=== PATIENT | male | born 1965 | race Caucasian/White ===

== ENCOUNTER → 2024-01-29 09:12 | Outpatient (REF) | payer BC, SELFPAY | LOC: RCS 09:12 | PROVIDERS: ATTENDING PHYSICIAN Internal Medicine Cardiovascular Disease; FAMILY PHYSICIAN Family Medicine | DX: R06.02 Shortness of breath (principal) | CPT/HCPCS: 93017; 93350 ==

== ENCOUNTER 2024-06-06 18:24 | Emergency (ER) | payer BC, SELFPAY ==
[2024-06-06 18:32] VITALS: BP 141/87
[2024-06-06 19:15] VITALS: BP 122/78
[2024-06-06 19:38] LABS: % Basophils 1.5 % (0-2); % Eosinophils 2.6 % (0-6); % Immature Granulocytes 0.3 % (0-0.5); % Lymphocytes 25.8 % (20.5-51.1); % Monocytes 9.1 % (1.7-9.3); % Neutrophils 60.7 % (42.2-75.2); Absolute Basophils 0.1 10^3/uL (0-0.2); Absolute Eosinophils 0.2 10^3/uL (0-0.7); Absolute Lymphocytes 1.8 10^3/uL (1.2-3.4); Absolute Monocytes 0.6 10^3/uL (0.1-0.6); Absolute Neutrophils 4.1 10^3/uL (1.4-6.5); Hematocrit 40.4 % (39.0-52.0); Hemoglobin 14.1 g/dL (13.0-18.0); Mean Corp Hgb Conc. 34.9 g/dL (33.0-37.0); Mean Corpuscular Hgb 29.3 pg (27.0-31.0); Mean Corpuscular Volume 83.8 fL (80.0-94.0); Mean Platelet Volume 10.3 fL (7.4-10.4); Nucleated Red Blood Cells % 0 % (-); Platelet Count 218 10^3/uL (130-400); Red Blood Cell Count 4.82 10^6/uL (4.70-6.10); Red Cell Dist. Width 12.5 % (11.5-14.5); White Blood Cell Count 6.8 10^3/uL (4.8-10.8)
[2024-06-06 19:52] LABS: ALT (SGPT) 23 U/L (0-50); AST (SGOT) 25 U/L (17-59); Albumin 4.3 g/dl (3.5-5.0); Alkaline Phosphatase 73 U/L (38-126); Blood Urea Nitrogen 25 mg/dl (9-20); Calcium 9.3 mg/dl (8.4-10.2); Carbon Dioxide 26 mmol/L (22-30); Chloride 103 mmol/L (98-107); Glucose 120 mg/dl (70-99); Potassium 3.9 mmol/L (3.5-5.1); Sodium 140 mmol/L (135-145); Total Bilirubin 0.2 mg/dl (0.2-1.3); Total Protein 6.7 g/dl (6.3-8.2); eGFR > 60.00
[2024-06-06 20:06] VITALS: BP 132/85
[2024-06-06 20:11] LABS: Troponin I < 0.012 ng/ml
[2024-06-06] MEDS: TORADOL 30 MG IM (20:55)
--- NOTE | 2024-06-06 20:59 | ED.GENMED ---
History of Present Illness
General
Chief Complaint: Chest Pain
Source: patient and spouse
Exam Limitations: none
Time Seen by Provider: 06/06/24 19:10
Nursing documentation reviewed up to this point in time: agreed with
History of Present Illness
History of Present Illness:
58-year-old male past medical history of hyperlipidemia presenting to the emergency department today with concerns of a lower chest discomfort especially with movement and positioning intermittently over the past 2 weeks no symptoms currently while
at rest and not moving. No associate breath nausea vomiting or diaphoresis. Had a recent stress echo this year that did not show any abnormalities.
Past History
Past History
ED Past Medical History: Asthma and Cancer (melanoma)
ED Past Surgical History: Orthopedic and Other (melanoma surgery, inguinal hernia); Negative Appendectomy, Bowel resection or Brain
Social History
Tobacco: Non-smoker
Alcohol: None
Drug: None
Personal:
Living: with family
Employment: Employed (Self-employed, restaurant owner operator tanker truck driver)
Family History
Family History: Diabetes (Mother), Hypertension, CAD (Mother with coronary artery disease late onset) and Cancer (Father at age 89 of leukemia)
Review of Systems
Review of Systems
Allergies reviewed?: Yes
All Other Systems: ROS reviewed and negative except as documented in HPI and ROS
Phy Exam
Physical Exam
Physical Exam:
GENERAL: Alert , in no apparent distress
EYE: pupils equal and reactive
NECK: Supple, no significant adenopathy.
ENT: o/p clr, mmm.
CARDIAC: Regular rate and rhythm .
LUNGS: Clear breath sounds bilaterally, no acute respiratory distress, no wheezes/rales/rhonchi
ABDOMEN: Soft, without focal tenderness, no r/g, no cvat
NEUROLOGICAL: Alert and oriented, no focal neuro deficits
SKIN: Warm and dry, skin intact.
MUSCULOSKELETAL: No edema, well perfused.
PSYCH: Normal and appropriate interaction.
Scores
Heart Score for Chest Pain Patients
STEMI patient?: No
History: Slightly or Non-Suspicious
ECG: Normal
Age: >45 - <65 years
Risk Factors: 1 or 2 Risk Factors
Troponin: </= Normal Limit
Heart Score for Chest Pain Patients: 2
Heart Score Risk: 2.5% MACE over next 6 weeks
Course
Orders/Labs/Results
Orders:
Orders
06/06/24 18:25
Electrocardiogram (*1) Urgent
Reason for Study: Chest Pain
EKG- Treatment ONCE
06/06/24 19:19
Cardiac Monitoring- Treatment ONCE
IV Insert/Care/Rem.- Treatment PRN
06/06/24 19:29
Complete Blood Count/With Diff Urgent
Comprehensive Metabolic Panel Urgent
Troponin I Urgent
06/06/24 19:34
Chest [CR Chest - 2 Views ] Urgent
Comment:
Reason For Exam: cp
06/06/24 20:37
Ketorolac [Toradol] 30 mg IM NOW STA
Abnormal Lab Results
06/06/24
19:29
BUN 25 H mg/dl
(9-20)
Glucose 120 H mg/dl
(70-99)
06/06/24 19:29
06/06/24 19:29
Vital Signs
Initial and Last Documented VS:
Initial Vital Signs
Temp Pulse BP Pulse Ox
98.1 F 74 141/87 96
06/06/24 18:32 06/06/24 18:32 06/06/24 18:32 06/06/24 18:32
Last Documented Vital Signs
Temp Pulse Resp BP Pulse Ox
98.1 F 69 18 132/85 96
06/06/24 18:32 06/06/24 20:10 06/06/24 20:10 06/06/24 20:06 06/06/24 20:10
MDM/Problems Addressed
MDM/Problems Addressed:
58-year-old male presenting to the emergency department today with concerns of chest pain over the past 2 weeks to the lower chest describes an achy pressure. No associated symptoms. Here vital signs are normal patient well-appearing no acute
distress labs unremarkable troponin negative chest x-ray normal EKG with no emergent findings. Patient well-appearing here stable for outpatient follow-up return precautions given.
*Critical Care Note
Total Time (30-74mins, 75-104mins- exclusive of procedures): Not Applicable
ED Attending Note
-
Portions of this chart may have been created with voice recognition software.� Occasional wrong word or��sound alike� substitutions may have occurred due to the inherent limitations of voice recognition software.
Discharge Plan
Departure
Patient Disposition: Home (Routine Discharge)
Date of Disposition: 06/06/24
Time of Disposition: 21:01
Patient with high blood pressure during this ER visit?: No
Condition: Good
Covid-19: Not Applicable
Discharge Problem:
Chest pain
Instructions: Chest Pain DCA Follow Up
Prescriptions:
No Action
atorvastatin 10 mg Tablet
10 mg PO DAILY
Referrals:
Willam Jordan MD [Family Provider] -
Activity Restrictions/Additional Instructions:
You came to the emergency department today for concerns of chest pain. Please take ibuprofen or Aleve over the next few days to see if this improves symptoms. Otherwise follow-up closely with cardiology. Return to the emergency department for any
worsening, new or concerning symptoms.
Interventions
Interventions:
*Risk Screen - Suicide Last Done: 06/06/24 18:35
*General Assessment Last Done: 06/06/24 18:35
*Neglect/Abuse Screening Last Done: 06/06/24 18:35
*ED COVID-19 Vaccine History Last Done: 06/06/24 18:35
ED- Cardiac Assessment Last Done: 06/06/24 19:23
Discharge Date and Time
Print Language: BELARUSIAN
[2024-06-06 21:00] VITALS: BP 123/84
== END 2024-06-06 21:44 | disposition home or self-care (01) ==
LOC: EMR 18:24
PROVIDERS: EMERGENCY PHYSICIAN Student in an Organized Health Care Education/Training Program; FAMILY PHYSICIAN Family Medicine
DX: R07.89 Other chest pain (principal); J45.909 Unspecified asthma, uncomplicated; E78.5 Hyperlipidemia, unspecified; Z85.820 Personal history of malignant melanoma of skin; Z91.048 Other nonmedicinal substance allergy status
CPT/HCPCS: 99284; 96372; 71046; 80053; 84484; 85025; 93005